=== PATIENT | female | born 1975 | race Caucasian/White ===

== ENCOUNTER 2018-12-14 07:55 | Emergency (ER) | payer OTHER ==
[~2018-12-14] VITALS: Ht 157.5 cm; Wt 68.0 kg
[2018-12-14] MEDS ORDERED: SODIUM CHLORIDE 0.9% 1,000 ML IVB ONE (08:06)
[2018-12-14] MEDS ORDERED: KETOROLAC TROMETH 30 MG/ML 1ML VIAL IV ONE (08:15)
[2018-12-14 08:55] LABS: Eosinophils # (auto) 0 uL; Eosinophils % (auto) 0.2 % (0.0-7.0); Hematocrit 32.2 % (36.0-46.0); Lymphocytes # (auto) 0.8 uL
[2018-12-14 08:57] LABS: Basophils # (auto) 0 uL; Basophils % (auto) 0.5 % (0.0-2.0); Hemoglobin 9.9 g/dL (12.2-16.2); Lymphocytes % (auto) 8.5 % (10.0-50.0); Mean Corpuscular Hemoglobin 21.7 pg (28.0-32.0); Mean Corpuscular Hgb Conc. 30.8 g/dL (32.0-36.0); Mean Corpuscular Volume 70.6 fL (80.0-100.0); Monocytes # (auto) 1.2 uL; Monocytes % (auto) 12.9 % (0.0-12.0); Neutrophils % (auto) 77.9 % (37.0-80.0); Platelet Count (auto) 201 10^3/uL (140-450); Red Blood Cells 4.56 10^6/uL (4.0-5.20); Red Cell Distribution Width 19.3 % (11.8-14.3)
[2018-12-14 09:22] LABS: Albumin 3.6 g/dL (3.4-5.0); BUN/Creatinine Ratio 16.3; Calcium 8.7 mg/dL (8.5-10.1); Potassium 3.2 mmol/L (3.5-5.1)
[2018-12-14 09:25] LABS: Bilirubin, Total 0.7 mg/dL (0.2-1.0); Total Protein 8.1 g/dL (6.4-8.2)
[2018-12-14 09:58] LABS: Urine Bacteria NONE SEEN /hpf (None Seen); Urine Blood 2+ /uL (Negative); Urine Mucus FEW (None Seen); Urine Specific Gravity 1.021 (1.001-1.035); Urine WBC 1291 /hpf (0 - 5); Urine WBC Clumps PRESENT /hpf (None Seen)
[2018-12-14] MEDS ORDERED: LEVOFLOXACIN 500MG 100 ML IV ONE (10:15)
[2018-12-14 10:20] VITALS: BP 121/77
[2018-12-14] MEDS ORDERED: POTASSIUM CHL 20 Meq TABLET PO ONE (10:30)
== END 2018-12-14 10:36 | disposition home or self-care (01) ==
LOC: ER 07:55
DX: N20.0 Calculus of kidney (principal); N39.0 Urinary tract infection, site not specified; J45.909 Unspecified asthma, uncomplicated; F17.210 Nicotine dependence, cigarettes, uncomplicated
CPT/HCPCS: 36415; 74176; 80053; 81001; 85025; 94761; 96361; 96365; 96375; 99284; J1885; J1956; J7030

== ENCOUNTER 2019-06-11 10:20 | Inpatient (IN) | payer OTHER ==
[~2019-06-11] VITALS: Ht 160 cm; Wt 76.3 kg
[2019-06-11] MEDS ORDERED: cloNIDine HCL 0.1 MG TAB PO ONE (10:45)
[2019-06-11 10:48] LABS: Basophils # (auto) 0.1 uL; Eosinophils # (auto) 0.1 uL; Lymphocytes # (auto) 1.3 uL; Monocytes # (auto) 0.7 uL; Monocytes % (auto) 11.3 % (0.0-12.0)
[2019-06-11 10:50] LABS: Basophils % (auto) 1.3 % (0.0-2.0); Eosinophils % (auto) 1.3 % (0.0-7.0); Hemoglobin 10.6 g/dL (12.2-16.2); Lymphocytes % (auto) 21.9 % (10.0-50.0); Mean Corpuscular Hemoglobin 22.4 pg (28.0-32.0); Mean Corpuscular Hgb Conc. 31.1 g/dL (32.0-36.0); Mean Corpuscular Volume 72.1 fL (80.0-100.0); Neutrophils # (auto) 3.7 uL; Neutrophils % (auto) 64.2 % (37.0-80.0); Platelet Count (auto) 373 10^3/uL (140-450); Red Blood Cells 4.72 10^6/uL (4.0-5.20); Red Cell Distribution Width 18.8 % (11.8-14.3); White Blood Cell 5.8 10^3/uL (4.4-10.8)
[2019-06-11 10:51] LABS: Urine Bacteria MOD /hpf (None Seen); Urine Blood 2+ /uL (Negative); Urine Mucus FEW (None Seen); Urine Specific Gravity 1.019 (1.001-1.035); Urine WBC 1392 /hpf (0 - 5); Urine WBC Clumps PRESENT /hpf (None Seen)
[2019-06-11 11:08] LABS: BUN/Creatinine Ratio 13.6; Calcium 9.5 mg/dL (8.5-10.1); Potassium 3.7 mmol/L (3.5-5.1)
[2019-06-11 11:12] LABS: Bilirubin, Total 0.7 mg/dL (0.2-1.0); Total Protein 7.8 g/dL (6.4-8.2)
[2019-06-11] MEDS ORDERED: ONDANSETRON HCL 4 MG/2 ML VIAL IV ONE (13:30)
[2019-06-11] MEDS ORDERED: cefTRIAXone 1GM/50ML D5W 50 ML IV ONE (13:30)
[2019-06-11] MEDS ORDERED: MORPHINE SULF INJ 2 MG/ML SYRINGE 1ML IV ONE (13:30)
[2019-06-11] MEDS ORDERED: TEMAZEPAM 15 MG CAP PO PRN (13:45)
[2019-06-11] MEDS ORDERED: MORPHINE SULF INJ 2 MG/ML SYRINGE 1ML IV PRN (13:45)
[2019-06-11] MEDS ORDERED: NITROGLYCERIN 0.4 MG SL TAB SL PRN (13:45)
[2019-06-11] MEDS ORDERED: ACETAMINOPHEN 500 MG TAB PO PRN (13:45)
[2019-06-11] MEDS: SODIUM CHLORIDE 0.9% 1,000 ML IV SCH ×2 (14:13→18:52)
[2019-06-11] MEDS: KETOROLAC TROMETH 30 MG/ML 1ML VIAL IV PRN ×2 (15:58→19:49)
[2019-06-11 16:00] VITALS: BP 153/92
--- NOTE | 2019-06-11 16:00 | NUR ---
Telemetry admit from ER GERRITY,IDALIA admitted to tele unit, following verbal report from BILLET WORKER. Patient oriented to Zulma Fuentes RN primary RN, unit, room, bed, and unit policies regarding patient care and visiting hours. Patient now on continuous telemetry monitoring, tele box #2. Telemetry reading on arrival to unit is NSR at 78. Patient on room air, weighed by bedscale and encouraged to call if they need something. All questions and concerns addressed, patient verbalized understanding. Note:
--- NOTE | 2019-06-11 18:00 | NUR ---
NPO status initiated for liver ultra sound. Pt informed. Pt states that Toradol given upon admission to floor has provided adequate pain control. Pt denies pain or discomfort at this time.
[2019-06-11] MEDS: PROMETHAZINE HCL 25 MG/ML 1ML IV PRN (19:48)
--- NOTE | 2019-06-11 20:00 | NUR ---
Opening Shift Note Assumed care of patient, awake and alert. No S/S of distress/SOB or pain. Instructed on POC and to call for assist PRN, will continue to monitor for changes Q1hr and PRN. Patient remains NPO status for liver US. Friend at bedside. Bed in low position and call light in reach.
--- NOTE | 2019-06-11 21:35 | NUR ---
US Tech at bedside for Liver US.
[2019-06-11 22:00] VITALS: BP 157/101
[2019-06-11] MEDS: FAMOTIDINE 20 MG TAB PO SCH (23:05)
[2019-06-12] MEDS: KETOROLAC TROMETH 30 MG/ML 1ML VIAL IV PRN ×3 (02:23→20:26)
[2019-06-12] MEDS: PROMETHAZINE HCL 25 MG/ML 1ML IV PRN (02:23)
[2019-06-12] MEDS: traMADol HCL 50 MG TAB PO PRN ×2 (04:21→18:59)
[2019-06-12 05:00] VITALS: BP 131/71
[2019-06-12 05:42] LABS: Basophils # (auto) 0.1 uL; Basophils % (auto) 1.2 % (0.0-2.0); Eosinophils # (auto) 0.1 uL; Eosinophils % (auto) 2.1 % (0.0-7.0); Hematocrit 27.7 % (36.0-46.0); Hemoglobin 8.5 g/dL (12.2-16.2); Lymphocytes # (auto) 1.3 uL; Lymphocytes % (auto) 25.9 % (10.0-50.0); Mean Corpuscular Hemoglobin 22.4 pg (28.0-32.0); Mean Corpuscular Hgb Conc. 30.8 g/dL (32.0-36.0); Mean Corpuscular Volume 72.6 fL (80.0-100.0); Monocytes # (auto) 0.7 uL; Monocytes % (auto) 13.8 % (0.0-12.0); Neutrophils # (auto) 2.8 uL; Platelet Count (auto) 281 10^3/uL (140-450); Red Blood Cells 3.82 10^6/uL (4.0-5.20); Red Cell Distribution Width 18.4 % (11.8-14.3); White Blood Cell 4.9 10^3/uL (4.4-10.8)
[2019-06-12 06:03] LABS: Albumin 3.1 g/dL (3.4-5.0); BUN/Creatinine Ratio 12.5; Calcium 8.3 mg/dL (8.5-10.1)
[2019-06-12 06:05] LABS: Bilirubin, Total 0.4 mg/dL (0.2-1.0); Total Protein 6.3 g/dL (6.4-8.2)
--- NOTE | 2019-06-12 06:54 | NUR ---
Closing note: Patient sleeping comfortably. Abdominal pain responded well to Tramadol 50 mg. Shift change report given to day RN.
--- NOTE | 2019-06-12 08:15 | NUR ---
OPENING SHIFT NOTE ASSUMED CARE OF PATIENT. PATIENT IS AWAKE AND ALERT. NO SOB OR SIGNS OF DISTRESS NOTED. INSTRUCTED ON POC AND TO CALL FOR ASSISTANCE PRN. BED IN LOWEST POSITION WITH SIDE RAILS UP X2. WILL CONTINUE TO MONITOR.
[2019-06-12 09:00] VITALS: BP 142/82
[2019-06-12] MEDS: cefTRIAXone 1GM/50ML D5W 50 ML IV SCH (10:26)
[2019-06-12] MEDS: FAMOTIDINE 20 MG TAB PO SCH ×2 (10:27→21:47)
[2019-06-12 13:00] VITALS: BP 149/97
[2019-06-12 18:19] VITALS: BP 155/90
[2019-06-12] MEDS: SODIUM CHLORIDE 0.9% 1,000 ML IV SCH ×2 (19:00→19:34)
[2019-06-12 22:00] VITALS: BP 163/99
[2019-06-12 22:30] VITALS: BP 156/92
--- NOTE | 2019-06-13 04:20 | NUR ---
SPOKED WITH CORNELIUS SIN REGARDING PATIENT'S BLOOD PRESSURE AT 150-160 SYSTOLIC. NO ORDER RECEIVED
[2019-06-13 05:00] VITALS: BP 156/100
[2019-06-13] MEDS: traMADol HCL 50 MG TAB PO PRN ×3 (05:02→19:44)
[2019-06-13] MEDS: SODIUM CHLORIDE 0.9% 1,000 ML IV SCH ×2 (06:34→18:18)
[2019-06-13 06:36] LABS: Eosinophils # (auto) 0.1 uL; Hemoglobin 8.7 g/dL (12.2-16.2); Lymphocytes # (auto) 1.2 uL; Mean Corpuscular Hemoglobin 22.5 pg (28.0-32.0); Monocytes # (auto) 0.7 uL; Red Blood Cells 3.87 10^6/uL (4.0-5.20)
[2019-06-13 06:38] LABS: Basophils # (auto) 0 uL; Basophils % (auto) 0.6 % (0.0-2.0); Eosinophils % (auto) 1.7 % (0.0-7.0); Hematocrit 27.8 % (36.0-46.0); INR 0.96 (0.9-1.15); Lymphocytes % (auto) 20.5 % (10.0-50.0); Mean Corpuscular Hgb Conc. 31.4 g/dL (32.0-36.0); Mean Corpuscular Volume 71.7 fL (80.0-100.0); Monocytes % (auto) 11.9 % (0.0-12.0); Neutrophils # (auto) 3.9 uL; Neutrophils % (auto) 65.3 % (37.0-80.0); Platelet Count (auto) 264 10^3/uL (140-450); Red Cell Distribution Width 18.4 % (11.8-14.3)
[2019-06-13 07:04] LABS: Potassium 3.9 mmol/L (3.5-5.1)
[2019-06-13 07:06] LABS: Calcium 8.3 mg/dL (8.5-10.1)
--- NOTE | 2019-06-13 07:40 | NUR ---
CARE ENDORSED TO AM SHIFT RN
--- NOTE | 2019-06-13 08:06 | NUR ---
OPENING SHIFT BEGAN CARE OF PATIENT. PATIENT IS AWAKE AND ALERT. NO SOB OR SIGNS OF DISTRESS NOTED. INSTRUCTED ON POC AND TO CALL FOR ASSISTANCE PRN. BED IN LOWEST POSITION WITH SIDE RAILS UP X2. WILL CONTINUE TO MONITOR.
[2019-06-13 09:00] VITALS: BP 154/101
[2019-06-13] MEDS: cefTRIAXone 1GM/50ML D5W 50 ML IV SCH (09:44)
[2019-06-13] MEDS: FAMOTIDINE 20 MG TAB PO SCH ×2 (09:44→21:35)
[2019-06-13] MEDS ORDERED: IBUP800T24 PO (10:20)
--- NOTE | 2019-06-13 11:58 | NUR ---
Nutrition Assessment Notes please see attached link for complete assessment Est. Needs BW 76 [id number] kcal (23-25 kcal/kgBW), 76-83 gms pro (1.0-1.1 gms/kgBW). Will continue to monitor pertinent labs and reassess nutrient need prn Addendum: 06/13/19 at [address] Amended: Links added.
[2019-06-13 13:00] VITALS: BP 166/111
[2019-06-13 16:46] VITALS: BP 155/98
[2019-06-13] MEDS ORDERED: LACTULOSE 20Gm/30ML SOLN PO PRN (17:30)
[2019-06-13] MEDS: KETOROLAC TROMETH 30 MG/ML 1ML VIAL IV PRN (18:17)
[2019-06-13] MEDS: cloNIDine HCL 0.1 MG TAB PO PRN (20:27)
[2019-06-13 20:30] VITALS: BP 168/116
[2019-06-14 01:15] VITALS: BP 146/94
[2019-06-14] MEDS: SODIUM CHLORIDE 0.9% 1,000 ML IV SCH ×2 (01:34→13:13)
[2019-06-14] MEDS: KETOROLAC TROMETH 30 MG/ML 1ML VIAL IV PRN ×2 (03:16→10:41)
[2019-06-14 04:59] VITALS: BP 131/98
[2019-06-14 05:28] LABS: Basophils # (auto) 0.1 uL; Basophils % (auto) 0.9 % (0.0-2.0); Eosinophils # (auto) 0.1 uL; Hematocrit 27.1 % (36.0-46.0); Hemoglobin 8.5 g/dL (12.2-16.2); Lymphocytes # (auto) 1.2 uL; Mean Corpuscular Hgb Conc. 31.4 g/dL (32.0-36.0); Monocytes # (auto) 0.7 uL; Monocytes % (auto) 12.8 % (0.0-12.0)
[2019-06-14 05:30] LABS: Mean Corpuscular Hemoglobin 22.6 pg (28.0-32.0); Mean Corpuscular Volume 71.8 fL (80.0-100.0); Neutrophils # (auto) 3.5 uL; Neutrophils % (auto) 63.3 % (37.0-80.0); Platelet Count (auto) 265 10^3/uL (140-450); Red Blood Cells 3.77 10^6/uL (4.0-5.20); Red Cell Distribution Width 18.9 % (11.8-14.3); White Blood Cell 5.6 10^3/uL (4.4-10.8)
[2019-06-14] MEDS: traMADol HCL 50 MG TAB PO PRN (06:20)
--- NOTE | 2019-06-14 07:37 | NUR ---
CARE ENDORSED TO AM SHIFT RN
[2019-06-14 08:00] VITALS: BP 161/99
[2019-06-14 08:07] LABS: Calcium 8.5 mg/dL (8.5-10.1); Potassium 3.8 mmol/L (3.5-5.1)
[2019-06-14 08:09] LABS: BUN/Creatinine Ratio 7.7
--- NOTE | 2019-06-14 08:30 | NUR ---
Opening Shift Note Assumed care of patient, awake and alert. No S/S of distress/SOB or pain. Bed is in lowest position with 2X side rails up for safety. Call light is within reach. Instructed on POC and to call for assist PRN, will continue to monitor for changes Q1hr and PRN.
[2019-06-14] MEDS: cefTRIAXone 1GM/50ML D5W 50 ML IV SCH (08:36)
[2019-06-14 09:00] VITALS: BP 161/99
[2019-06-14] MEDS: FAMOTIDINE 20 MG TAB PO SCH (10:41)
[2019-06-14] MEDS: cloNIDine HCL 0.1 MG TAB PO PRN (11:05)
--- NOTE | 2019-06-14 11:05 | NUR ---
B/P 163/97, HR 61 PRN Clonidine administered per order.
[2019-06-14 13:00] VITALS: BP 159/93
[2019-06-14] MEDS ORDERED: cloNIDine HCL 0.1 MG TAB PO PRN (14:15)
--- NOTE | 2019-06-14 15:05 | NUR ---
B/P 151/95 HR 65, notified Dr Lewis, Clonidine order changed to Q 2 HR PRN, administered, will repeat B/P check.
[2019-06-14 15:20] VITALS: BP 150/93
--- NOTE | 2019-06-14 16:01 | NUR ---
B/P 155/101 HR 70 bpm, notified Dr Lewis, verbalized understanding and continue with discharge home.
== END 2019-06-14 16:45 | disposition home or self-care (01) | DRG 690 ==
LOC: ER 10:20 → TELE 10:21 → TELE-EAST 15:30
PROVIDERS: ADMIT Internal Medicine; ATTEND Internal Medicine
DX: N10 Acute pyelonephritis (principal); E44.1 Mild protein-calorie malnutrition; F17.210 Nicotine dependence, cigarettes, uncomplicated; G47.00 Insomnia, unspecified; I10 Essential (primary) hypertension; K57.30 Diverticulosis of large intestine without perforation or abscess without bleeding; J45.909 Unspecified asthma, uncomplicated; N28.89 Other specified disorders of kidney and ureter; N93.9 Abnormal uterine and vaginal bleeding, unspecified; D63.8 Anemia in other chronic diseases classified elsewhere; R16.0 Hepatomegaly, not elsewhere classified; Z87.442 Personal history of urinary calculi; Z80.3 Family history of malignant neoplasm of breast; Z82.49 Family history of ischemic heart disease and other diseases of the circulatory system; Z98.51 Tubal ligation status; Z88.8 Allergy status to other drugs, medicaments and biological substances; Z68.29 Body mass index [BMI] 29.0-29.9, adult
CPT/HCPCS: 36415; 71045; 74018; 74176; 76705; 76775; 80048; 80053; 81001; 85025; 85610; 85652; 86141; 87086; 87088; 87186; 96365; 96375; G0378; J0696; J1885; J2405

== ENCOUNTER 2019-07-03 09:52 | Inpatient (IN) | payer OTHER ==
[~2019-07-03] VITALS: Ht 157.5 cm; Wt 74.9 kg
[~2019-07-03 09:52] MED LIST: IBUP800T24 PO
[2019-07-03] MEDS ORDERED: HYDROmorphone HCL 2 MG/ML VL ONE (10:34)
[2019-07-03] MEDS ORDERED: ONDANSETRON HCL 4 MG/2 ML VIAL ONE (10:34)
[2019-07-03] MEDS ORDERED: ONDANSETRON HCL 4 MG/2 ML VIAL IV ONE (10:45)
[2019-07-03] MEDS ORDERED: HYDROmorphone HCL 2 MG/ML VL IV ONE (10:45)
[2019-07-03 10:47] LABS: Basophils # (auto) 0.1 uL; Eosinophils # (auto) 0 uL; Eosinophils % (auto) 0.8 % (0.0-7.0); Hematocrit 32.3 % (36.0-46.0); Lymphocytes # (auto) 1.4 uL; Lymphocytes % (auto) 24.8 % (10.0-50.0); Mean Corpuscular Hemoglobin 21.7 pg (28.0-32.0); Mean Corpuscular Hgb Conc. 31.1 g/dL (32.0-36.0); Mean Corpuscular Volume 69.7 fL (80.0-100.0); Monocytes # (auto) 0.8 uL; Monocytes % (auto) 13.1 % (0.0-12.0); Neutrophils # (auto) 3.5 uL; Neutrophils % (auto) 60.3 % (37.0-80.0); Nucleated Red Blood Cells % 0.1 %; Platelet Count (auto) 377 10^3/uL (140-450); Red Blood Cells 4.64 10^6/uL (4.0-5.20); Red Cell Distribution Width 18.9 % (11.8-14.3); White Blood Cell 5.8 10^3/uL (4.4-10.8)
[2019-07-03 11:06] LABS: BUN/Creatinine Ratio 10.4; Calcium 8.8 mg/dL (8.5-10.1); Potassium 3.6 mmol/L (3.5-5.1)
[2019-07-03 11:09] LABS: Bilirubin, Total 0.7 mg/dL (0.2-1.0); Total Protein 8.3 g/dL (6.4-8.2)
[2019-07-03] MEDS ORDERED: LISINOPRIL 20 MG TAB PO ONE (13:15)
[2019-07-03] MEDS ORDERED: MORPHINE SULF INJ 2 MG/ML SYRINGE 1ML IV PRN (13:45)
[2019-07-03] MEDS ORDERED: ACETAMINOPHEN 500 MG TAB PO PRN (13:45)
[2019-07-03] MEDS ORDERED: hydrALAZINE HCL 20 MG/ML VL IV PRN (13:45)
[2019-07-03] MEDS ORDERED: ONDANSETRON HCL 4 MG/2 ML VIAL IV PRN (13:45)
--- NOTE | 2019-07-03 14:12 | NUR ---
MS admit from ER GERRITY,IDALIA admitted to tele/MS after SBAR received. Patient oriented to OFE ORTIZ, RN primary RN, unit, room, bed, and unit policies regarding patient care and visiting hours. Patient weighed by bedscale and encouraged to call if they need something. All questions and concerns addressed, patient verbalized understanding. Note:
[2019-07-03] MEDS ORDERED: CLON0.1T PO (14:27)
[2019-07-03 14:41] VITALS: BP 171/114
[2019-07-03] MEDS ORDERED: amLODIPine BESYLATE 5 MG TAB PO ONE (14:45)
[2019-07-03] MEDS: SODIUM CHLORIDE 0.9% 1,000 ML IV SCH (14:46)
[2019-07-03] MEDS ORDERED: MORPHINE SULF INJ 2 MG/ML SYRINGE 1ML ONE (15:38)
[2019-07-03 16:46] VITALS: BP 149/95
--- NOTE | 2019-07-03 18:46 | NUR ---
URINE SENT TO LAB
--- NOTE | 2019-07-03 19:00 | NUR ---
Opening Shift Note Assumed care of patient, awake and alert. Family on bedside. No S/S of distress/SOB or pain. Instructed on POC and to call for assist PRN, will continue to monitor for changes Q1hr and PRN.
[2019-07-03 19:09] LABS: Urine Bacteria NONE SEEN /hpf (None Seen); Urine Blood TRACE /uL (Negative); Urine Mucus FEW (None Seen); Urine Specific Gravity 1.014 (1.001-1.035); Urine WBC 227 /hpf (0 - 5)
[2019-07-03] MEDS ORDERED: HYDROmorphone HCL 2 MG/ML VL IV PRN (19:30)
[2019-07-03] MEDS: HYDROcodone-ACET 5/325MG TAB PO PRN (20:00)
[2019-07-03 21:59] VITALS: BP 139/88
[2019-07-03] MEDS: HYDROmorphone HCL 2 MG/ML VL IV PRN (22:38)
[2019-07-04] MEDS: SODIUM CHLORIDE 0.9% 1,000 ML IV SCH ×2 (03:05→16:00)
[2019-07-04 05:16] LABS: Basophils # (auto) 0 uL; Eosinophils # (auto) 0.1 uL; Eosinophils % (auto) 1.2 % (0.0-7.0); Hemoglobin 8.9 g/dL (12.2-16.2)
[2019-07-04 05:18] LABS: Basophils % (auto) 0.8 % (0.0-2.0); Hematocrit 28.7 % (36.0-46.0); Lymphocytes % (auto) 19.9 % (10.0-50.0); Mean Corpuscular Hgb Conc. 30.9 g/dL (32.0-36.0); Mean Corpuscular Volume 71.3 fL (80.0-100.0); Monocytes # (auto) 0.5 uL; Monocytes % (auto) 10.6 % (0.0-12.0); Neutrophils # (auto) 3.5 uL; Neutrophils % (auto) 67.5 % (37.0-80.0); Platelet Count (auto) 262 10^3/uL (140-450); Red Blood Cells 4.03 10^6/uL (4.0-5.20); Red Cell Distribution Width 18.1 % (11.8-14.3); White Blood Cell 5.2 10^3/uL (4.4-10.8)
[2019-07-04 05:34] LABS: Albumin 3.2 g/dL (3.4-5.0); Calcium 8.3 mg/dL (8.5-10.1); Potassium 3.8 mmol/L (3.5-5.1)
[2019-07-04 05:37] LABS: INR 0.97 (0.9-1.15); Partial Thromboplastin Time 25.4 sec (23.64-32.05)
[2019-07-04 05:40] LABS: BUN/Creatinine Ratio 10.6; Bilirubin, Total 0.4 mg/dL (0.2-1.0); Total Protein 6.9 g/dL (6.4-8.2)
[2019-07-04 05:46] VITALS: BP 120/79
--- NOTE | 2019-07-04 07:28 | NUR ---
Opening Shift Note Assumed care of patient, awake and alert. No S/S of distress/SOB or pain. Instructed on POC and to call for assist PRN, will continue to monitor for changes Q1hr and PRN.
[2019-07-04 08:43] VITALS: BP 127/74
[2019-07-04] MEDS: FAMOTIDINE 20 MG TAB PO SCH (09:38)
[2019-07-04] MEDS: amLODIPine BESYLATE 5 MG TAB PO SCH (09:38)
[2019-07-04 13:00] VITALS: BP 128/83
[2019-07-04] MEDS ORDERED: cefTRIAXone 1GM/50ML D5W 50 ML IV ONE (13:00)
--- NOTE | 2019-07-04 13:15 | NUR ---
md hines rounded on patient updated patient on plan of care from urology perspective, pt is to have antibiotic therapy prior to lithotripsy pt verbalized understanding
--- NOTE | 2019-07-04 15:43 | NUR ---
pt c/o LAC iv pain iv no redness or swelling noted patent, attempted x2 to start another peripheral iv, attempts unsuccessful
[2019-07-04] MEDS: HYDROmorphone HCL 2 MG/ML VL IV PRN ×2 (16:01→23:36)
[2019-07-04 16:47] VITALS: BP 136/84
[2019-07-04] MEDS: HYDROcodone-ACET 5/325MG TAB PO PRN ×2 (18:13→22:50)
--- NOTE | 2019-07-04 18:20 | NUR ---
PT COMPLAIN OF SUDDEN SHARP STAPPING KNIFE LIKE PAIN 06/02 REPOSITIONING RENDERED TO PT PRN DAFNE GIVEN, HOSPITALIST PAGED TO REPORT PAIN NOT BEING MANAGED UNDER CURRENT REGIMEN, AWAITING CALL BACK
--- NOTE | 2019-07-04 18:27 | NUR ---
HOSPITALIST CALLED BACK NEW ORDERS NOTED X1 DOES DILAUDID 0.5
[2019-07-04] MEDS ORDERED: HYDROmorphone HCL 2 MG/ML VL IV ONE (18:30)
[2019-07-04 23:05] VITALS: BP 129/84
[2019-07-05] MEDS: HYDROcodone-ACET 5/325MG TAB PO PRN ×3 (04:08→22:20)
[2019-07-05 05:13] VITALS: BP 147/94
[2019-07-05] MEDS: SODIUM CHLORIDE 0.9% 1,000 ML IV SCH ×2 (05:45→18:14)
[2019-07-05] MEDS: HYDROmorphone HCL 2 MG/ML VL IV PRN ×3 (08:14→20:17)
[2019-07-05 09:00] VITALS: BP 147/86
[2019-07-05] MEDS: cefTRIAXone 1GM/50ML D5W 50 ML IV SCH (09:19)
[2019-07-05] MEDS: FAMOTIDINE 20 MG TAB PO SCH (09:19)
[2019-07-05] MEDS: amLODIPine BESYLATE 5 MG TAB PO SCH (09:19)
[2019-07-05 13:00] VITALS: BP 152/90
[2019-07-05 17:00] VITALS: BP 148/98
--- NOTE | 2019-07-05 19:12 | NUR ---
Opening Shift Note Assumed care of patient, awake and alert. No S/S of distress/SOB. POC discussed and questions answered. bed is locked in lowest position with side rails up x2 for safety, call light is within reach and patient encouraged to call if needs anything. Will continue to round q1hr and prn.
[2019-07-05 22:00] VITALS: BP 155/96
[2019-07-06] MEDS: HYDROmorphone HCL 2 MG/ML VL IV PRN ×3 (01:56→14:38)
[2019-07-06] MEDS: SODIUM CHLORIDE 0.9% 1,000 ML IV SCH ×2 (06:01→16:51)
[2019-07-06 06:25] VITALS: BP 148/90
[2019-07-06 08:22] VITALS: BP 137/94
[2019-07-06] MEDS: cefTRIAXone 1GM/50ML D5W 50 ML IV SCH (08:56)
[2019-07-06] MEDS: amLODIPine BESYLATE 5 MG TAB PO SCH (08:57)
[2019-07-06] MEDS: FAMOTIDINE 20 MG TAB PO SCH (08:57)
[2019-07-06] MEDS: HYDROcodone-ACET 5/325MG TAB PO PRN (09:07)
[2019-07-06] MEDS ORDERED: MAGNESIUM CITRATE SOLUTION 300 ML BTL PO PRN (10:30)
[2019-07-06] MEDS: KETOROLAC TROMETH 30 MG/ML 1ML VIAL IV PRN ×2 (10:44→20:36)
[2019-07-06] MEDS ORDERED: MAGNESIUM CITRATE SOLUTION 300 ML BTL PO ONE (10:45)
[2019-07-06 12:34] VITALS: BP 150/98
--- NOTE | 2019-07-06 14:39 | NUR ---
Nutrition Assessment Notes please see attached link for complete assessment Est. Needs BW 74 [id number] kcal (23-25 kcal/kgBW), 74-81 gms pro (1.0-1.1 gms/kgBW). Will continue to monitor pertinent labs and reassess nutrient need prn Addendum: 07/06/19 at [address] Amended: Links added.
--- NOTE | 2019-07-06 16:43 | NUR ---
assessment Patient has no post discharge needs identified at this time. Addendum: 07/06/19 at 1644 by Ade LAYNE Amended: Links added.
[2019-07-06 16:52] VITALS: BP 135/85
[2019-07-06 21:00] VITALS: BP 130/82
[2019-07-07] MEDS: HYDROcodone-ACET 5/325MG TAB PO PRN (01:21)
[2019-07-07 04:30] VITALS: BP 126/77
[2019-07-07] MEDS: KETOROLAC TROMETH 30 MG/ML 1ML VIAL IV PRN (06:18)
[2019-07-07 08:34] VITALS: BP 134/88
[2019-07-07] MEDS: cefTRIAXone 1GM/50ML D5W 50 ML IV SCH (09:00)
[2019-07-07] MEDS ORDERED: ceFAZolin 1GM/50ML 50 ML IV ONE (09:03)
[2019-07-07] MEDS ORDERED: MEPERIDINE HCL (25 MG/ML) 1ML VIAL ONE (09:34)
[2019-07-07] MEDS ORDERED: MIDAZOLAM HCL 1MG/1ML-2 ML VIAL ONE (09:34)
[2019-07-07] MEDS ORDERED: fentaNYL CITRATE 100 MCG/2 ML VL ONE (09:34)
[2019-07-07] MEDS ORDERED: DexAMETHasone SOD PHOS 10MG/1ML VIAL INJ ONE (09:44)
[2019-07-07] MEDS ORDERED: PROPOFOL 10 MG/ML 20 ML IV ONE (09:44)
[2019-07-07] MEDS ORDERED: MORPHINE SULFATE 4 MG/ML SYR/VIAL IV PRN (09:45)
[2019-07-07] MEDS ORDERED: LABETALOL HCL 5 MG/ML 4ML SYRINGE IV PRN (09:45)
[2019-07-07] MEDS ORDERED: MIDAZOLAM HCL 1MG/1ML-2 ML VIAL IV PRN (09:45)
[2019-07-07] MEDS ORDERED: HYDROmorphone HCL 2 MG/ML VL IV PRN (09:45)
[2019-07-07] MEDS ORDERED: ONDANSETRON HCL 4 MG/2 ML VIAL IV PRN (09:45)
[2019-07-07] MEDS ORDERED: ePHEDrine SULFATE 50 MG/ML AMP IV PRN (09:45)
[2019-07-07] MEDS ORDERED: KETOROLAC TROMETH 30 MG/ML 1ML VIAL IV ONE (09:45)
[2019-07-07] MEDS ORDERED: FUROSEMIDE 20 MG/2 ML VIAL IV ONE (09:55)
[2019-07-07 09:59] LABS: Basophils # (auto) 0 uL; Eosinophils # (auto) 0.1 uL; Monocytes # (auto) 0.5 uL; Nucleated Red Blood Cells % 0.1 %; White Blood Cell 4.9 10^3/uL (4.4-10.8)
[2019-07-07] MEDS: FAMOTIDINE 20 MG TAB PO SCH (10:00)
[2019-07-07] MEDS: amLODIPine BESYLATE 5 MG TAB PO SCH (10:00)
[2019-07-07 10:01] LABS: Basophils % (auto) 0.7 % (0.0-2.0); Eosinophils % (auto) 1.2 % (0.0-7.0); Lymphocytes % (auto) 19.8 % (10.0-50.0); Mean Corpuscular Hgb Conc. 31.1 g/dL (32.0-36.0); Mean Corpuscular Volume 70.8 fL (80.0-100.0); Neutrophils # (auto) 3.4 uL; Neutrophils % (auto) 68.3 % (37.0-80.0); Platelet Count (auto) 255 10^3/uL (140-450); Red Cell Distribution Width 18.9 % (11.8-14.3)
[2019-07-07 10:17] LABS: BUN/Creatinine Ratio 16.7; Calcium 8.6 mg/dL (8.5-10.1); Potassium 3.4 mmol/L (3.5-5.1)
[2019-07-07] MEDS: SODIUM CHLORIDE 0.9% 1,000 ML IV SCH (11:05)
[2019-07-07 12:30] VITALS: BP 138/90
[2019-07-07 13:53] VITALS: BP 137/94
--- NOTE | 2019-07-07 14:22 | NUR ---
Discharge instructions given as ordered. Encourage to follow up with PMD as instructed. All questions and concerns addressed. Patient verbalized understanding. Medication reconciliation form completed and copy given to patient. IV removed with catheter intact, pressure dressing applied . Patient taken to vehicle via wheelchair with all personal belongings, accompanied by staff and family member. No distress noted at time of departure.
== END 2019-07-07 14:20 | disposition home or self-care (01) | DRG 661 ==
LOC: ER 09:54 → OVERFLOW 09:55 → WEST WING 14:27
PROVIDERS: ADMIT Nurse Practitioner Acute Care; ATTEND Internal Medicine
PROC: 0T778DZ Dilation of Left Ureter with Intraluminal Device, Via Natural or Artificial Opening Endoscopic (ICD-10-PCS; principal; 2019-07-07 09:55)
PROC: 0TF4XZZ Fragmentation in Left Kidney Pelvis, External Approach (ICD-10-PCS; 2019-07-07 09:55)
DX: N13.6 Pyonephrosis (principal); B96.1 Klebsiella pneumoniae [K. pneumoniae] as the cause of diseases classified elsewhere; K57.30 Diverticulosis of large intestine without perforation or abscess without bleeding; K76.0 Fatty (change of) liver, not elsewhere classified; I10 Essential (primary) hypertension; F17.210 Nicotine dependence, cigarettes, uncomplicated; J45.909 Unspecified asthma, uncomplicated; D50.9 Iron deficiency anemia, unspecified; Z88.8 Allergy status to other drugs, medicaments and biological substances; Z87.440 Personal history of urinary (tract) infections; Z87.09 Personal history of other diseases of the respiratory system; Z87.442 Personal history of urinary calculi; Z98.890 Other specified postprocedural states; Z98.51 Tubal ligation status; Z82.49 Family history of ischemic heart disease and other diseases of the circulatory system
CPT/HCPCS: 36415; 74018; 74176; 80048; 80053; 80061; 81001; 81025; 85025; 85610; 85730; 87086; 87088; 87186; 93005; 96361; 96374; 96375; G0378; J0690; J0696; J1100; J1885; J2250; J2405; J2704

== ENCOUNTER 2019-07-08 08:00 | Emergency (ER) | payer OTHER ==
[~2019-07-08] VITALS: Ht 157.5 cm; Wt 68.0 kg
[~2019-07-08 08:00] MED LIST changes: +CLON0.1T PO
[2019-07-08 10:12] LABS: Urine Bacteria NONE SEEN /hpf (None Seen); Urine Blood 3+ /uL (Negative); Urine Specific Gravity 1.021 (1.001-1.035); Urine WBC 279 /hpf (0 - 5)
[2019-07-08 10:15] VITALS: BP 179/119
== END 2019-07-08 10:43 | disposition left against medical advice (07) ==
LOC: ER 08:04
DX: T83.031A Leakage of indwelling urethral catheter, initial encounter (principal); R33.9 Retention of urine, unspecified; J45.909 Unspecified asthma, uncomplicated; I10 Essential (primary) hypertension; F17.210 Nicotine dependence, cigarettes, uncomplicated; Z98.51 Tubal ligation status; Z87.442 Personal history of urinary calculi; Z88.6 Allergy status to analgesic agent
CPT/HCPCS: 74176; 81001